=== PATIENT | female | born 1960 | race Caucasian/White ===

== ENCOUNTER 2019-03-25 06:40 | Day surgery (SDC) | payer OTHER, SELFPAY ==
[2019-03-25 06:43] VITALS: BP 112/66; PULSE 71; RESP 16; TEMP 36.4; O2SAT 97
[2019-03-25] MEDS: Lidocaine 2% Multi-Dose 50 ML VIAL (07:24)
--- NOTE | 2019-03-25 07:40 | W.PM.DSUDISC ---
Discharge Plan Disposition Patient Disposition: HOME Condition: Improving Discharge Details Reason For Visit: TRIGGER THUMB (R) Attending Provider: Baldev Gonzalez Primary Care Provider: Kendrick Mckenzie Home Meds and New Rx's Prescriptions: No Action ranitidine HCl [Zantac Maximum Strength] 150 MG tablet 150 mg PO BID PRNQty: 60 RF: 11 Nexium 24HR 22.3 MG capsule,delayed release(DR/EC) 22.3 mg PO PRN PRNRF: 0 tretinoin 20 GM cream 1 applic Topical HS RF: 0 Discharge Instructions Additional Instructions: Keep your right hand elevated above heart level as needed to help control pain and swelling.You may exercise and use your right hand as comfort allows. Expect a small amount of bloody drainage on the gauze bandages. For showering tomorrow, cover your bandage with a plastic bag and a rubber band about the wrist to keep the bandage dry and allow the incision to seal. On 03/27/19, you may remove all of your bandages and get your wound wet in the shower with soap and water. Gently pat the stitch dry and cover it with a bandaid. Continue to use the hand as comfort allows. Follow-up with Dr. Gonzalez in 1 week for stitch removal. Take your regular medications as before. Take tylenol,advil or aleve for milder pain Tylenol may be taken at the same time as aleve or at the same time as advil as they are metabolized differently and are not cross toxic. This can be done if your pain is not managed by a single medication. Activity:: Elevate Remove Dressings/Wound Care:: 48 hours Shower/Bathe:: 24 hours Diet:: As Tolerated Discharge Orders Discharge Orders: Discharge Order (Routine); Ordered 03/25/19 Ordered By: Baldev Gonzalez DS: Diagnosis Discharge Diagnosis (1) Trigger thumb of right hand: Status: Acute
--- NOTE | 2019-03-25 07:57 | W.PM.DSUDISC ---
Discharge Plan Disposition Patient Disposition: HOME Condition: Improving Discharge Details Reason For Visit: TRIGGER THUMB (R) Attending Provider: Baldev Gonzalez Primary Care Provider: Kendrick Mckenzie Home Meds and New Rx's Prescriptions: No Action ranitidine HCl [Zantac Maximum Strength] 150 MG tablet 150 mg PO BID PRNQty: 60 RF: 11 Nexium 24HR 22.3 MG capsule,delayed release(DR/EC) 22.3 mg PO PRN PRNRF: 0 tretinoin 20 GM cream 1 applic Topical HS RF: 0 Discharge Instructions Additional Instructions: Keep your right hand elevated above heart level as needed to help control pain and swelling.You may exercise and use your right hand as comfort allows. Expect a small amount of bloody drainage on the gauze bandages. For showering tomorrow, cover your bandage with a plastic bag and a rubber band about the wrist to keep the bandage dry and allow the incision to seal. On 03/27/19, you may remove all of your bandages and get your wound wet in the shower with soap and water. Gently pat the stitch dry and cover it with a bandaid. Continue to use the hand as comfort allows. Follow-up with Dr. Gonzalez in 1 week for stitch removal. Take your regular medications as before. Take tylenol,advil or aleve for milder pain Tylenol may be taken at the same time as aleve or at the same time as advil as they are metabolized differently and are not cross toxic. This can be done if your pain is not managed by a single medication. Activity:: Elevate Remove Dressings/Wound Care:: 48 hours Shower/Bathe:: 24 hours Diet:: As Tolerated Discharge Orders Discharge Orders: Discharge Order (Routine); Ordered 03/25/19 Ordered By: Baldev Gonzalez Discharge Data Discharge Date/Time-TO BE ENTERED AT DEPARTURE: 03/25/19 08:05 DS: Diagnosis Discharge Diagnosis (1) Trigger thumb of right hand: Status: Acute
--- NOTE | 2019-03-25 13:44 | ROE_ITS ---
DATE OF PROCEDURE: March 25, 2019 PREOPERATIVE DIAGNOSIS: Trigger thumb right upper extremity. POSTOPERATIVE DIAGNOSIS: Same. PROCEDURE: Release A1 raffy, right thumb. SURGEON: Baldev Gonzalez M.D. SUPERINTENDENT DRIVERS: Nurse ANESTHETIC: 2% Lidocaine plain. PREP: ChloraPrep. 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 I recommended she undergo trigger thumb release. I revi ewed the planned procedure with her in the Day Surgery holding area. She understood and wished to pr oceed. The right thumb was marked. PROCEDURE: She was taken to the operating suite where her right arm and hand were prepped with Chlor aPrep. Sterile drapes were applied. A time-out was instituted to confirm the patient's identity and her allergies and the planned procedure. 2% Lidocaine was then used to create an anesthetic wheal a t the metacarpophalangeal joint region. Prior to this, I confirmed that the thumb was actively ema ering. After waiting an appropriate time so that the thumb tip was completely numb, I then made a tr ansverse incision over the prominent A1 raffy. This was done under loupe magnification. The skin w as solely incised. The rest of the dissection was done via blunt technique using Littler scissors an d Ragnell retractors. The tendon sheath was identified and incised, initially with a #15 scalpel bl kevyn and then extended along the midline of the thumb with Littler scissors. I then had the patient f princess and extend her thumb and she had complete excursion of the thumb with no catching or triggering. She visualized this as well. The wound was then closed with a single suture of #5-0 Ethilon in a ho rizontal mattress fashion. There was minimal bleeding. Sterile bandages were applied consisting of Xeroform gauze, 4x4's and a 2-inch conforming gauze bandage. The patient was taken to the outpatient recovery room in satisfactory condition, tolerating the procedure well.
== END 2019-03-25 08:05 | disposition home or self-care (01) ==
PROVIDERS: PCP Family Medicine; Visit Provider Orthopaedic Surgery
PROC: (CPT 26055; principal; 2019-03-25 07:30)
DX: M65.311 Trigger thumb, right thumb (principal)
CPT/HCPCS: 26055

== ENCOUNTER 2019-09-09 07:05 | Outpatient (CLI) | payer OTHER, SELFPAY ==
[2019-09-09 08:05] LABS: HGB 14.2 g/dL (12.0-15.5); Mean Corpuscular Hemoglobin 31.4 pg (27.0-33.0); Mean Corpuscular Volume 95.1 fL (80-95); Mean Platelet Volume 9.2 fL (8.0-11.0); Platelet Count 266 x1000/uL (130-400); RBC 4.52 m/cumm (4.00-5.20); White Blood Cell Count 5.72 k/cumm (4.4-10.8)
[2019-09-09 08:23] LABS: ALT 28 U/L (14-59); AST 16 U/L (15-37); Alkaline Phosphatase 54 U/L (46-116); Anion Gap 6.4 mmol/L (3-11); BUN 24 mg/dL (7-18); Bilirubin, Total 1.1 mg/dL (0.2-1.0); CO2 30.6 mmol/L (21.0-32.0); CREATININE 0.87 mg/dL (0.55-1.02); Calcium 9.2 mg/dL (8.5-10.1); Calculated LDL 166 mg/dL; Chloride 105 mmol/L (98-107); Cholesterol 235 mg/dL (50-200); Glucose 109 mg/dL (70-100); HDL Cholesterol 51 mg/dL (40-60); Potassium 4.4 mmol/L (3.5-5.1); Sodium 142 mmol/L (136-145); TSH (W/Ref FT4) 2.55 uIU/mL (0.36-3.74); Total Protein 6.8 g/dL (6.4-8.2); Triglyceride 92 mg/dL (30-150)
== END 2019-09-09 07:25 ==
PROVIDERS: PCP Student in an Organized Health Care Education/Training Program; Visit Provider Student in an Organized Health Care Education/Training Program
DX: R53.83 Other fatigue (principal); Z86.2 Personal history of diseases of the blood and blood-forming organs and certain disorders involving the immune mechanism; I95.9 Hypotension, unspecified; R73.01 Impaired fasting glucose; Z13.220 Encounter for screening for lipoid disorders; K21.9 Gastro-esophageal reflux disease without esophagitis
CPT/HCPCS: 36415; 80053; 80061; 85027; 84443

== ENCOUNTER 2020-03-20 10:35 | Outpatient (CLI) | payer OTHER, SELFPAY ==
[2020-03-21 15:31] LABS: COVID-19 RT-PCR Result NEGATIVE (Negative)
== END 2020-03-20 10:55 ==
PROVIDERS: PCP Student in an Organized Health Care Education/Training Program; Visit Provider Podiatrist
DX: Z11.59 Encounter for screening for other viral diseases (principal)
CPT/HCPCS: U0003

== ENCOUNTER 2020-03-23 06:18 | Day surgery (SDC) | payer OTHER, SELFPAY ==
[2020-03-23 06:28] VITALS: BP 122/84; PULSE 70; RESP 16; TEMP 36.2; O2SAT 100
[2020-03-23] MEDS: Lactated Ringers 1,000 ML 80 ML IV (06:45)
[2020-03-23] MEDS: Povidone-Iodine Soln. 118 ML BTL TP ×2 (06:49→08:24)
--- NOTE | 2020-03-23 07:15 | HPE_ITS ---
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 Nonoperative treatment is a failed to provide sufficient relief of symptoms and she is opting for surgical intervention. 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 Peterson EGD - IV Sedation (05/28/06) DR PEÑA, ESOPHAGITIS Gastroscopy (07/02/15) Dr. Cindi Roberts History of carpal tunnel release (Acute) Bilateral History of section (Chronic) Family History Sister Lupus Father Stroke Social History Smoking/Tobacco Use Status: Never Alcohol Intake: current Alcohol Intake frequency: a few times a week Alcohol type: other Drug use: Never Substance use type: does not use Adopted: No Foster care: No Household members: spouse and children Housing: house Number of Children: 3 number of grandchildren: 1 Communication Needs: Corrective Lenses Education Level: college Do you need help understanding health information?: Never current occupation: [employer] Pets and animals: No Sexually active: Yes Do you think of yourself as: straight/heterosexual Current gender identity: female What type of physical activity do you participate in: bicycling, regular exercise, weight lifting and resistance training Duration: 60-90 minutes/day Frequency: 3-4 times per week Special kwame needs: No Seatbelt use: always Helmet use: Yes Drive intox or ride w/intox sanitation truck driver: No Working smoke detector in home: Yes Fire extinguisher in home: Yes Carbon monox detector in home: Yes Do you feel safe at home: Yes Do you feel safe in your relationship?: Yes Meds Home Medications and Allergies Home Medications Medication Instructions Recorded Confirmed Type tretinoin 1 applic TOPICAL HS script 01/04/18 03/23/20 History cholecalciferol (vitamin D3) 30 mcg PO DAILY 03/20/20 03/23/20 History [Vitamin D3] magnesium citrate 125 mg PO DAILY 03/20/20 03/23/20 History omega 0-zwa-yye-fish oil [Fish Oil] 1 cap PO DAILY 03/20/20 03/23/20 History turmeric root extract 1,076 mg PO DAILY 03/20/20 03/23/20 History Allergies Allergy/AdvReac Type Severity Reaction Status Date / Time codeine AdvReac Intermediate Nausea Verified 03/20/20 12:12 Exam Narrative Exam Narrative: Head is normocephalic Eyes PERRLA Uvula is midline airway looks assessable no suspicious oral lesions were noted Heart has regular rate and rhythm no gallops rubs or murmurs were noted Lung ni are clear Abdomen was soft, nontender bowel sounds x4 Peripheral pulses are manually palpable at the ankles 2 out of 4 capillary fill is under 3 seconds to all toes no peripheral edema Muscle groups of 5 out of 5 bilaterally Skeletal exam reveals end-stage degenerative arthrosis of the first MPJ the right foot with periarticular synovitis, crepitance severe restriction of motion. Pain is elicited with even gentle palpation or movement of the joint Neurologically toes were downgoing there are no focal deficits Impression: End-stage degenerative arthrosis first MPJ right foot Hallux rigidus Plan: Graciela is being brought to the OR for surgical correction painful right first MPJ. She understands risk and complications of surgery pertaining to pain scarring infection shortening of the great toe floating of the great toe the potential for revisional procedures. All questions have been answered in detail. No promises made to final outcome of surgery. Informed consents been obtained. Results Last Vital Signs Temp 36.2 C L 03/23/20 06:28 Pulse 70 03/23/20 06:28 Resp 16 03/23/20 06:28 BP 122/84 03/23/20 06:28 Pulse Ox 100 03/23/20 06:28 COVID-19 Screening In the past 14 days, have you traveled outside of [place] or [place]?: NO
[2020-03-23] MEDS: ceFAZolin 1 GM/50 ML BAG IVPB (07:33)
[2020-03-23] MEDS: Bupivacaine 0.5% Pres-Free 30 ML VIAL (08:04)
[2020-03-23] MEDS: Lidocaine 1% Pres-Free 5 ML VIAL (08:06)
[2020-03-23] MEDS: Dexamethasone 4 MG/ML VIAL (08:22)
--- NOTE | 2020-03-23 08:41 | PDOC.DSDIS_ITS ---
Discharge Plan Disposition Patient Disposition: HOME Condition: Good Discharge Details Reason For Visit: HALLUX RIGIDUS (R) Attending Provider: Baldev Shane Primary Care Provider: Marry Moise Home Meds and New Rx's Prescriptions: New hydrocodone-acetaminophen [[place]] 5-325 mg tablet 1 tab PO Q6H PRN (Reason: pain) Qty: 7 RF: 0 ibuprofen 600 mg tablet 600 mg PO Q6H PRN (Reason: pain and inflamation) Qty: 40 RF: 0 Continued tretinoin 20 GM cream 1 applic Topical HS RF: 0 cholecalciferol (vitamin D3) [Vitamin D3] 10 mcg (400 unit) Tablet 30 mcg PO DAILY RF: 0 omega 0-idk-tmf-fish oil [Fish Oil] 300-1,000 mg Capsule,Delayed Release(Dr/Ec) 1 cap PO DAILY RF: 0 magnesium citrate 125 mg Capsule 125 mg PO DAILY RF: 0 turmeric root extract 1,053 mg Tablet 1,076 mg PO DAILY RF: 0 Discharge Instructions Stand Alone Forms: [facility] Instructions-DSU, Lalita Juarez (DSU) Activity:: Elevate Remove Dressings/Wound Care:: Do Not Remove Shower/Bathe:: Cover Diet:: Normal Diet Discharge Data Discharge Date/Time-TO BE ENTERED AT DEPARTURE: 03/23/20 08:42 DS: Diagnosis Discharge Diagnosis (1) Hallux rigidus, right foot: Status: Acute
--- NOTE | 2020-03-23 08:53 | W.PM.OP ---
Date of service: 03/23/20 Time of Service: 08:53 Operative Note Operative Note DATE OF PROCEDURE: 03/23/20 PRE-OP DIAGNOSIS: Symptomatic right hallux rigidus deformity POST-OP DIAGNOSIS: same PROCEDURE: [place] type bunionectomy with 0.062 K wire fixation right first MPJ SURGEON: Baldev Shane ESTIMATED BLOOD LOSS: 1 TOURNIQUET TIME: 41 COMPLICATIONS: None Patient was transported to: same day Patient's condition: stable Implants: 0.062 K wire Indications: 60-year-old white female with chronic pain associated with end-stage degenerative arthrosis first MPJ right foot with hallux rigidus. Findings: Complete loss of articular surface was appreciated with periarticular exostoses flattening of the joint and joint mice observed within the joint space once opened. Procedure Description: Graciela was brought to the operative suite placed in the supine position with the right foot was prepped and draped in the usual sterile podiatric fashion. Timeout was performed by protocol. Anesthesia was obtained through local block of the first ray utilizing 10 cc of a 50: 50 mixture 1% lidocaine plain, 0.5% Marcaine plain. General anesthesia was utilized Kayleen Harkins CRNA nurse oracle application architect The right foot was exsanguinated well-padded ankle tourniquet inflated 250 mmHg. Attention was directed to the first MPJ the right foot where a 5 cm dorsal medial incision was made parallel to the EHL tendon. The incision was deepened in controlled depth fashion hemostasis acquired with electrocautery as needed. Dissection was carried down to the joint capsule where a midline incision was made. The joint capsule was reflected. Inspection of the articular surface of the joint revealed complete loss of cartilage on both sides of the joint. With power instrumentation approximately 1 cm of the base of the proximal phalanx was resected. This was removed from the operative field. The medial lateral and dorsal hyperostosis from the first metatarsal head was then resected. All rough and bony edges were rasped smooth. Copious irrigation was performed. Stabilization was performed with a 0.062 K wire in retrograde fashion. The joint capsule was subsequently repaired with simple interrupted suture 3-0 Vicryl subcutaneous layer was repaired with simple interrupted suture of 4-0 Vicryl running subcuticular stitch of 4-0 Monocryl was then utilized to coapt the skin. This was supported with Mastisol half-inch Steri-Strips. 4 mg of dexamethasone phosphate was infused deeply into the joint region. Betadine ointment applied to the K wire. Xeroform gauze fluff compression dressings applied to the right foot. Tourniquet was released at approximately 41 minutes with vascularity returning immediately to all toes. Graciela left the OR with vital signs stable vascular status intact sharp and sponge counts were correct she will be followed by myself in the office next week.
--- NOTE | 2020-03-23 09:01 | PDOC.DSDIS_ITS ---
Discharge Plan Disposition Patient Disposition: HOME Condition: Good Discharge Details Reason For Visit: HALLUX RIGIDUS (R) Attending Provider: Baldev Shane Primary Care Provider: Marry Moise Home Meds and New Rx's Prescriptions: New hydrocodone-acetaminophen [[place]] 5-325 mg tablet 1 tab PO Q6H PRN (Reason: pain) Qty: 7 RF: 0 ibuprofen 600 mg tablet 600 mg PO Q6H PRN (Reason: pain and inflamation) Qty: 40 RF: 0 Continued tretinoin 20 GM cream 1 applic Topical HS RF: 0 cholecalciferol (vitamin D3) [Vitamin D3] 10 mcg (400 unit) Tablet 30 mcg PO DAILY RF: 0 omega 2-ogv-kkx-fish oil [Fish Oil] 300-1,000 mg Capsule,Delayed Release(Dr/Ec) 1 cap PO DAILY RF: 0 magnesium citrate 125 mg Capsule 125 mg PO DAILY RF: 0 turmeric root extract 1,053 mg Tablet 1,076 mg PO DAILY RF: 0 Discharge Instructions Stand Alone Forms: [place] Instructions-DSU, Lalita Juarez (DSU) Activity:: Elevate Remove Dressings/Wound Care:: Do Not Remove Shower/Bathe:: Cover Diet:: Normal Diet Discharge Orders Discharge Orders: Discharge Order (Routine); Ordered 03/23/20 Ordered By: Baldev Shane DS: Diagnosis Discharge Diagnosis (1) Hallux rigidus, right foot: Status: Acute
[2020-03-23 09:08] VITALS: BP 103/62; PULSE 64; RESP 16; TEMP 36.2; O2SAT 100
== END 2020-03-23 09:36 | disposition home or self-care (01) ==
LOC: SUR 06:18
PROVIDERS: PCP Student in an Organized Health Care Education/Training Program; Visit Provider Podiatrist
PROC: (CPT 28292; principal; 2020-03-23 07:30)
DX: M19.071 Primary osteoarthritis, right ankle and foot (principal); M20.21 Hallux rigidus, right foot; M85.871 Other specified disorders of bone density and structure, right ankle and foot
CPT/HCPCS: 28292; 99223; J0690; J1100; J1885; J2001; J2405

== ENCOUNTER 2020-07-30 01:53 | Outpatient (CLI) | payer OTHER, SELFPAY ==
--- NOTE | 2020-07-30 08:03 | DI.MAMMO_ITS ---
EXAM: MAMMO SCREENING CLINICAL HISTORY: screening,Z12.39 TECHNIQUE: Mammograms were interpreted according to the usual protocol including computer analysis w [employer] CAD system, tomosynthesis and C-view imaging. COMPARISON: 2010 through 2017 FINDINGS: The breasts are composed of scattered fibroglandular densities, Breast Density category B. No suspicious masses or suspicious microcalcifications are seen. No skin thickening or abnormal axillary lymph nodes are seen. There has been no significant change from prior exams. IMPRESSION: BI-RADS Category 1, Negative mammogram Yearly screening mammography is recommended. Breast Density - Category B, scattered fibroglandular densities. A negative radiographic report should not delay biopsy if a dominant or clinically suspicious mass is present. Up to ten percent of cancers are not identified on mammography. A negative report may reinforce clinical impression. Adenosis and dense breasts may obscure an underlying neoplasm. False positive reports average 6 to 10%. Patient will receive a letter notifying them of these results.
== END 2020-07-30 02:13 ==
PROVIDERS: PCP Student in an Organized Health Care Education/Training Program; Visit Provider Student in an Organized Health Care Education/Training Program
DX: Z12.31 Encounter for screening mammogram for malignant neoplasm of breast (principal)
CPT/HCPCS: 77063; 77067

== ENCOUNTER 2020-09-26 00:34 | Outpatient (CLI) | payer OTHER, SELFPAY ==
--- NOTE | 2020-09-26 07:45 | DI.US_ITS ---
EXAM: US SOFT TISSUE EXTREMITY CLINICAL HISTORY: Evaluate nodule; Tender to palpATION,R22.9 TECHNIQUE: Ultrasound performed using standard protocol. COMPARISON: US ABDOMEN ULTRASOUND (P) {[id number]} from 09/04/2015 FINDINGS: Soft tissue ultrasound was performed to evaluate palpable area of abnormality of the anterior superio r left thigh. Ultrasound shows a 9 x 8 x 5 millimeter in diameter superficial well-circumscribed hor izontally oriented avascular echogenic solid nodule, this has appearance consistent with lipoma altho ugh other etiologies are not excluded. IMPRESSION: Palpable left anterior thigh nodule appears to correspond with ultrasonically identified presumed lip elicia, 9 millimeter in diameter. DATA REPOSITORY:
== END 2020-09-26 00:54 ==
PROVIDERS: PCP Student in an Organized Health Care Education/Training Program; Visit Provider Student in an Organized Health Care Education/Training Program
DX: R22.42 Localized swelling, mass and lump, left lower limb (principal)
CPT/HCPCS: 76881

== ENCOUNTER 2021-10-04 02:36 | Outpatient (CLI) | payer OTHER, SELFPAY ==
[2021-10-04 07:40] LABS: HCT 41.4 % (36.0-46.0); HGB 13.8 g/dL (11.2-15.7); MCH 31.9 pg (27.0-33.0); MCHC 33.3 % (32.0-36.0); MCV 95.6 fL (80-95); MPV 8.8 fL (8.0-11.0); Platelet Count 236 10^3/uL (130-400); RBC 4.33 10^6/uL (3.93-5.22); RDW 11.7 % (11.7-14.6); RDW-SD 41.1 fL; WBC 4.66 10^3/uL (4.4-10.8)
[2021-10-04 09:22] LABS: ALT 24 U/L (14-59); AST 15 U/L (15-37); Albumin 3.9 g/dL (3.4-5.0); Alkaline Phosphatase 57 U/L (46-116); Anion Gap 5.8 mmol/L (3-11); BUN 18 mg/dL (7-18); Bilirubin, Total 1.1 mg/dL (0.2-1.0); CO2 31.2 mmol/L (21.0-32.0); CREATININE 0.9 mg/dL (0.55-1.02); Calculated LDL 168 mg/dL (<100); Chloride 104 mmol/L (98-107); Cholesterol 240 mg/dL (<200); Glucose 100 mg/dL (74-106); HDL Cholesterol 59 mg/dL (40-60); Sodium 141 mmol/L (136-145); TSH (W/Ref FT4) 2.35 uIU/mL (0.36-3.74); Total Protein 6.6 g/dL (6.4-8.2); Triglyceride 65 mg/dL (<150)
[2021-10-07 00:32] LABS: Vitamin D 25 Total 44.8 ng/mL (30-100)
== END 2021-10-04 02:37 | disposition home or self-care (01) ==
LOC: LBO 02:36
PROVIDERS: PCP Student in an Organized Health Care Education/Training Program; Visit Provider Student in an Organized Health Care Education/Training Program
DX: R73.01 Impaired fasting glucose; K90.9 Intestinal malabsorption, unspecified; R79.89 Other specified abnormal findings of blood chemistry; K21.9 Gastro-esophageal reflux disease without esophagitis; E46 Unspecified protein-calorie malnutrition; Z13.220 Encounter for screening for lipoid disorders
CPT/HCPCS: 36415; 80053; 80061; 82306; 85027; 84443

== ENCOUNTER 2021-10-14 01:41 | Outpatient (CLI) | payer OTHER, SELFPAY ==
--- NOTE | 2021-10-14 07:00 | DI.RAD_ITS ---
Exam(s) XR HAND LT COMPLETE EXAM: XR HAND LT COMPLETE CLINICAL HISTORY: eval for bony path,arthritis vs tendonitis vs injury,bilat hand pain,. TECHNIQUE: 2D digital imaging was performed. COMPARISON: CR XR HAND RT COMPLETE from 10/14/2021 FINDINGS: No evidence of acute fracture nor dislocation. There is a 2 millimeter calcific density seen associa guy with the PIP joint of the 3rd finger, best seen on the oblique view. At the level of the wrist there are significant advanced degenerative changes at the articulation bet ween the thumb metacarpal and trapezium. Hypertrophic change and adjacent calcific density measuring 5 x 4 millimeters. Similar to the opposite side. At the metacarpophalangeal joint of the thumb there is some linear calcification noted off the latera l aspect of the joint, possibly within the lateral collateral ligament. Similar findings not seen in the opposite-right thumb. IMPRESSION: Advanced degenerative changes at the 1st carpometacarpal joint. Other thumb findings as described above. DATA REPOSITORY: RADIATION DOSE DELIVERED:
--- NOTE | 2021-10-14 07:00 | DI.RAD_ITS ---
Exam(s) XR HAND RT COMPLETE EXAM: XR HAND RT COMPLETE CLINICAL HISTORY: eval for bony path,arthritis vs tendonitis vs injury,bilat hand pain,. TECHNIQUE: 2D digital imaging was performed. COMPARISON: No exams were available for comparison FINDINGS: Three views reveal no evidence of acute fracture nor dislocation. Small ossified densities are seen adjacent to the DIP joint of the 3rd finger and interphalangeal joint of the thumb. Also adjacent to the DIP joint of the 4th and 3rd fingers. There are minimal degenerative changes at these joints. No erosions. At the level of the wrist there is significant osteoarthritic degenerative change at the articulation between the thumb metacarpal and trapezium. Similar to the opposite side. IMPRESSION: Para-articular calcifications at the level of the DIP joints of the 2nd, 3rd, and 4th fingers as well as interphalangeal joint of the thumb. Moderate-advanced degenerative changes at the 1st carpometacarpal joint, similar to the opposite side . DATA REPOSITORY: RADIATION DOSE DELIVERED:
== END 2021-10-14 02:01 ==
PROVIDERS: PCP Student in an Organized Health Care Education/Training Program; Visit Provider Student in an Organized Health Care Education/Training Program
DX: M18.0 Bilateral primary osteoarthritis of first carpometacarpal joints; M79.641 Pain in right hand; M79.642 Pain in left hand; M79.644 Pain in right finger(s); M79.645 Pain in left finger(s); M65.311 Trigger thumb, right thumb
CPT/HCPCS: 73130

== ENCOUNTER 2021-11-04 12:00 | Outpatient (REF) | payer OTHER, SELFPAY ==
--- NOTE | 2021-11-04 11:00 | PAPFT_PTH ---
PATIENT: Graciela Vidal LOC: [facility] U#:[id number] AGE/SX: 61/F ROOM: RE11/04/[address]: LINDA Reagan : 1960 BED: DIS: 11/04/2021 SPEC #: [id number] RECD: 11/04/21 12:52 STATUS: RICHAR REJaison #: [id number] ROSALBA: 11/04/21 11:[address]: Anita Grande DEPT: [facility] Cytology RECD BY: Antonia Avilez ENTERED: 11/04/21 12:52 SP TYPE: PAPFT OTHR DR: Marry Moise, Tissues: 1 - CX/ENDOCX FOR PAP SMEARS Procedures: PAP THIN PREP/[facility] Screening HPV DNA PROBE Comments: [id number]
== END 2021-11-04 12:01 | disposition home or self-care (01) ==
LOC: LBN 12:00
PROVIDERS: PCP Student in an Organized Health Care Education/Training Program; Visit Provider Nurse Practitioner Family
DX: Z12.4 Encounter for screening for malignant neoplasm of cervix (principal); Z11.51 Encounter for screening for human papillomavirus (HPV)
CPT/HCPCS: 88142; 87624

== ENCOUNTER 2021-11-15 01:58 | Outpatient (CLI) | payer OTHER, SELFPAY ==
--- NOTE | 2021-11-15 06:30 | DI.DEXA_ITS ---
Exam(s) XR DEXA BONE DENSITY W/WO SADE EXAM: XR DEXA BONE DENSITY W/WO SADE CLINICAL HISTORY: evaluate bone density,screening for osteoporosis,at risk for osteoporosis TECHNIQUE: Routine DEXA evaluation of the lumbar spine, hip, or forearm. COMPARISON: No exams were available for comparison FINDINGS: Performed on a Hologic unit. Lateral image: No compression fracture evident. Lumbar Spine total T-score: -2.0 Hip total T-score:-2.0 Independent reading at the level of the femoral neck yields at T-score of -2.8. Forearm total T-score: -2.6 IMPRESSION: Bone mineral density measures in the osteopenia range, bordering on osteoporosis.. Fracture risk is moderate-high. Note: Any spine fracture indicates 5x risk for subsequent spine fracture and 2x risk for subsequent h ip fracture. World Health Organization criteria for BMD interpretation classify patients: Normal...... T- Score at or above -1.0 Osteopenic... T- Score between -1.0 and -2.5 Osteoporosis... T-Score at or below -2.5
== END 2021-11-15 02:18 ==
PROVIDERS: PCP Student in an Organized Health Care Education/Training Program; Visit Provider Student in an Organized Health Care Education/Training Program
DX: M81.0 Age-related osteoporosis without current pathological fracture (principal); Z13.820 Encounter for screening for osteoporosis; Z79.899 Other long term (current) drug therapy; Z91.89 Other specified personal risk factors, not elsewhere classified; M85.89 Other specified disorders of bone density and structure, multiple sites
CPT/HCPCS: 77080

== ENCOUNTER 2022-01-31 01:12 | Outpatient (RCR) | payer OTHER, SELFPAY ==
[2022-01-31] MEDS: Normal Saline Flush 10 ML SYR IVP (13:06)
[2022-01-31] MEDS: ZOLEDRONIC ACID/MANNITOL/WATER 5 MG/100 ML BTL 300 MG IVPB (13:06)
== END 2022-03-01 23:59 | disposition home or self-care (01) ==
LOC: INF 01:12
PROVIDERS: PCP Student in an Organized Health Care Education/Training Program; Visit Provider Student in an Organized Health Care Education/Training Program
DX: M81.0 Age-related osteoporosis without current pathological fracture (principal)
CPT/HCPCS: 96365; J3489

== ENCOUNTER 2022-03-14 00:51 | Outpatient (CLI) | payer OTHER, SELFPAY ==
--- NOTE | 2022-03-14 06:45 | DI.MAMMO_ITS ---
Exam(s) MAMMO SCREENING EXAM: MAMMO SCREENING CLINICAL HISTORY: screening,Z12.39. TECHNIQUE: Bilateral full field digital CC and MLO mammographic images were obtained with 3D tomosyn thesis and utilizing computer aided detection (CAD). COMPARISON: Prior mammograms were reviewed, the most recent being July 2020. FINDINGS: There has been no significant change in the appearance and distribution tissue. There are no new spiculated masses nor malignant appearing microcalcification groups. There is no significant architectural distortion nor skin thickening-retraction. IMPRESSION: No radiographic evidence of malignancy. BI-RADS Category 1 - Negative Breast Density - Category B - Scattered areas of fibroglandular density Breast density Category C or D implies that the patient has dense breast tissue. Dense breast tissue can make it harder to find cancer on a mammogram. Dense breast tissue is also associated with an incr eased risk of breast cancer. This information about the result of the mammogram report was provided to the patient to raise their awareness. Use this report when you speak with the patient about their risks for breast cancer, which includes their family history. At that time, you may recommend additional screening tests (Ultrasoun d or MRI) as these tests may add significant information. A negative radiographic report should not delay biopsy if a dominant or clinically suspicious mass is present. Up to ten percent of cancers are not identified on mammography. A negative report may reinforce clinical impression. Adenosis and dense breasts may obscure an underlying neoplasm. False positive reports average 6 to 10%. Patient will receive a letter notifying them of these results.
== END 2022-03-14 01:11 ==
PROVIDERS: PCP Student in an Organized Health Care Education/Training Program; Visit Provider Student in an Organized Health Care Education/Training Program
DX: Z12.31 Encounter for screening mammogram for malignant neoplasm of breast (principal)
CPT/HCPCS: 77063; 77067

== ENCOUNTER 2022-07-14 11:12 | Day surgery (SDC) | payer OTHER, SELFPAY ==
--- NOTE | 2022-07-14 08:22 | COLE_ITS ---
Colonoscopy Report Date of procedure: 07/14/22 Pre-op diagnosis general: colon cancer screening Post-op diagnosis procedure note: same Procedure: Colonoscopy Surgeon: Cindi Roberts Anesthesia Type: General:No Airway Estimated blood loss (mL): 0 Pathology: none sent Complications: None Disposition: same day Indications: The patient? is a pleasant 62-year-old female who is here to discuss another screening colonoscopy. ? She denies any changes in bowel habits, melena, h ematochezia, unintentional weight loss or family history of colon cancer.? The procedure and risks were discussed.? The prep was reviewed in detail.? Risks, benefits and complications have been reviewed. Complications include but are not limited to bleeding, pain, perforation, missed small lesion/polyp, sore throat, aspiration and adverse reaction to the medications. Questions were entertained and answered to their satisfaction and they wished to proceed. No guarantees were given or implied. Prep: Miralax/Dulcolax Procedure Start Time: 13:05 Findings: Normal colonoscopy Procedure Description: After informed consent was obtained the patient was taken to the procedure room and placed in a left decubitous position. Monitors were applied and a time out was done. The patients name, date of , procedure, allergies to medications and metal in their body was reviewed. The patient was then sedated. Once sedated and comfortable a rectal exam was done. External exam was normal. Internal exam revealed a normal sphincter tone and no palpable masses. The scope was then introduced and retro-flexed. No internal hemorrhoids, polyps or masses were identified on retro-flexion. The scope was then advanced to the cecum without difficulty. The ileocecal vlave and appendiceal orifice were identified. The prep was adequate. The scope was then slowly retracted over more then 6 minutes back into the rectum. There were no polyps. There was no diverticulosis noted. The scope was removed and the patient was woken up and taken back to Same day surgery in stable condition. The patient tolerated the procedure well and there were no immediate complications.
--- NOTE | 2022-07-14 08:23 | W.PM.DSUDISC ---
Discharge Plan Disposition Patient Disposition: HOME Condition: Good Discharge Details Reason For Visit: colonoscopy Attending Provider: Cindi Roberts Primary Care Provider: Marry Moise Home Meds and New Rx's Prescriptions: Continued garlic 5,000 mcg tablet 5 mg PO DAILY zoledronic aade-gpaucmrl-[id number] [Reclast] 5 mg/100 mL piggyback See Rx Instructions IV ONCE Qty: 100 0RF Label Comments: pt. reports leg aches and swelling, porb wont do again Rx Instructions: 5MG IN 100ML IV Infusion IV once; administer over at least 15 mins calcium carbonate [Antacid (calcium carbonate)] 200 mg calcium (500 mg) tablet,chewable 200 mg PO BID Label Comments: pt. reports calcium citrate vitamin K2 40 mcg tablet 40 mcg PO DAILY tretinoin 20 GM cream 1 applic Topical HS Rx Instructions: to affected facial areas after washing for mild photodamage to skin, Dr Harmon calcium citrate 200 mg (950 mg) Tablet 200 mg PO BID omega 3-vce-krp-fish oil [Fish Oil] 300-1,000 mg Capsule,Delayed Release(Dr/Ec) 1 cap PO DAILY turmeric root extract 1,053 mg Tablet 1,076 mg PO DAILY cholecalciferol (vitamin D3) [Vitamin D3] 10 mcg (400 unit) tablet 2,000 unit PO DAILY magnesium citrate 125 mg capsule 100 mg PO DAILY Discontinued bisacodyl [Dulcolax (bisacodyl)] 5 mg tablet,delayed release (DR/EC) 5 mg PO ONCE Qty: 4 0RF polyethylene glycol 3350 17 gram/dose powder 17 g PO ONCE Qty: 238 0RF Discharge Instructions Additional Instructions: Findings: Normal Follow up: 10 years Please call if you develop: fevers >101.5 Nausea or Vomiting Abdominal pain that is not transient Rectal bleeding that is more then a tbsp A hard abdomen and inability to pass gas DAY SURGERY UNIT POST ENDOSCOPY INSTRUCTIONS Instructions for everyone who is given Anesthesia: For your safety, please do the following for the next 24 Hours: a. Do not drive or operate dangerous equipment b. Do not drink alcohol beverages or use any recreational drugs for the first 24 hours or while taking pain medications. The medications in your body may have a reaction that can be dangerous. c. Do not make any important decisions or sign any important papers 1. Generally there are no restrictions on your activity after a day or so has gone by, but you may feel a bit fatigued for a few days. 2. After you arrive home you may have a light meal and return to a normal diet as you can tolerate it without feeling sick to your stomach. 3. After surgery, you may feel pain or discomfort. This should be only transient, but if it persists please contact your doctor. 4. If there are any questions regarding the findings of your procedure, please feel free to contact your doctor. 6. If you are unable to contact your doctor with a problem, contact the hospital at [phone]. 7. Continue all your regular medications unless directed otherwise. I understand the above instructions and have no questions. Signature of Patient or Responsible Adult Escort Date/Time Name of Responsible Adult Escort Signature of Nurse Date/Time Activity:: Activity as Tolerated Diet:: As Tolerated Discharge Orders Discharge Orders: Discharge Order (Routine); Ordered 07/14/22 Ordered By: Cindi Roberst
[2022-07-14 11:39] VITALS: BP 116/87; PULSE 72; RESP 18; TEMP 36.3; O2SAT 98
[2022-07-14] MEDS: Lactated Ringers 1,000 ML 80 ML IV (11:50)
--- NOTE | 2022-07-14 13:34 | W.ANESPRE ---
General Info Date of Service Date Performed: 07/14/22 Height: 5 ft 4 in Weight: 59.5 kg Body Mass Index (BMI): 22.5 Surgical Procedure: Operation Date: 07/14/22 13:05 Proposed Procedure Side Surgeon p Colonoscopy Cindi Roberts MD Actual Procedure Side Surgeon p Colonoscopy Cindi Roberts MD Meds Allergies and Home Medications Allergies Allergy/AdvReac Type Severity Reaction Status Date / Time codeine AdvReac Intermediate Nausea Verified 07/14/22 11:30 Home Medication Medication Instructions Recorded tretinoin 0.025 % topical cream 1 applic topical HS 01/04/18 omega 8-lov-npr-fish oil 300 1 cap PO DAILY 03/20/20 mg-1,000 mg capsule,delayed release (Fish Oil) turmeric root extract 1,053 mg 1,076 mg PO DAILY 03/20/20 tablet cholecalciferol (vitamin D3) 10 2,000 unit PO DAILY 09/14/20 mcg (400 unit) tablet (Vitamin D3) garlic 5,000 mcg tablet 5 mg PO DAILY 09/14/20 magnesium citrate 125 mg capsule 100 mg PO DAILY 09/14/20 zoledronic acid 5 mg/100 mL in See Rx Instructions IV ONCE #100 mL 12/20/21 mannitol 5 %-water intravenous piggybck (Reclast) bisacodyl 5 mg tablet,delayed 5 mg PO ONCE #4 tabs 07/04/22 release (Dulcolax (bisacodyl)) calcium carbonate 200 mg calcium 200 mg PO BID 07/04/22 (500 mg) chewable tablet (Antacid (calcium carbonate)) polyethylene glycol 3350 17 17 g PO ONCE #238 grams 07/04/22 gram/dose oral powder vitamin K2 40 mcg tablet 40 mcg PO DAILY 07/04/22 calcium citrate 200 mg (950 mg) 200 mg PO BID 07/14/22 tablet Current Visit Medications: Current Medications Generic Name Dose Route Start Last Admin Trade Name Freq PRN Reason Stop Dose Admin Hyoscyamine Sulfate 0.125 mg 07/14/22 08:24 Hyoscyamine 0.125 Mg Sl/Oral/Chew SL DIRECTED PRN Ringer's Solution 1,000 mls @ 80 mls/hr 07/14/22 06:00 07/14/22 11:50 IV 08/10/22 23:59 80 mls/hr INFUSION ZACHARIAH Administration IV Miscellaneous Supplies 1 each 07/14/22 06:00 Iv Access IV 08/10/22 23:59 DIRECTED ZACHARIAH Ondansetron HCl 4 mg 07/14/22 08:24 Ondansetron 4 Mg/2 Ml Vial IVP Q4H PRN PRN Nausea / Vomiting Sodium Chloride 0 ml 07/14/22 06:00 Normal Saline Flush 10 Ml Syr IV 08/10/22 23:59 PRN PRN Sodium Chloride 0 ml 07/14/22 06:00 Normal Saline 10 Ml Vial IJ 08/10/22 23:59 DIRECTED PRN Sterile Water 0 ml 07/14/22 06:00 Water,Injection,Sterile 10 Ml Vial IJ 08/10/22 23:59 DIRECTED PRN PFSH Active Problems Active Problems: Problem Status Onset Code Abnormal fasting glucose 03/18/16 R73.01 Asymptomatic postmenopausal status (age-related) (natural) 11/26/12 Z78.0 Gastroesophageal reflux disease without esophagitis 12/29/05 K21.9 Non-ulcer dyspepsia 11/06/15 K30 Other hyperlipidemia 05/12/17 E78.4 Trigger thumb of right hand M65.311 Hallux rigidus, right foot M20.21 Subcutaneous nodule R22.9 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 Both patient and son are vaccinated Surgical History Surgical History Colonoscopy - IV Sedation 2010- Dr. Peterson EGD - IV Sedation (05/28/06) DR SANCHEZ, ESOPHAGITIS Gastroscopy (07/02/15) Dr. Cindi Roberts History of carpal tunnel release Bilateral History of section Tobacco Smoking/Tobacco Use Status: Never Passive smoking exposure: No Alcohol Alcohol Intake: current Alcohol intake frequency: a few times a week Alcohol type: beer and other Substance Use Substance use: Occasionally Substance use type: marijuana Details: marijuana: 3 weeks ago Vital Signs and Lab Results Vital Signs Most Recent Vital Signs in EMR: Most Recent Vital Signs Temp Pulse Resp BP Pulse Ox 36.3 C L 72 18 116/87 98 07/14/22 11:39 07/14/22 11:39 07/14/22 11:39 07/14/22 11:39 07/14/22 11:39 Lab Results Blood Type / Crossmatch: No Data to Display Complete Blood Count: No Data to Display Complete Metabolic Panel: No Data to Display Liver Function Panel: No Data to Display Coagulation Panel: No Data to Display Cardiac Panel: No Data to Display Arterial Blood Gas: No Data to Display Venous Blood Gas: No Data to Display Pancreas Panel: No Data to Display Thyroid Panel: No Data to Display Infectious Disease: No Data to Display Blood Cultures: No Data to Display Toxicology Panel: No Data to Display Anesthesia Assessment and Plan Anesthesia History Personal History: No History of Anesthesia Complications Family History: No Family History of Anesthesia Complications Exercise Tolerance Exercise Tolerance: Metabolic Equivalents>4 Pertinent Negatives Pertinent Negatives: No Symptoms of GERD, No Major Cardiovascular Symptoms or Complaints, No Major Pulmonary Symptoms or Complaints and No History of CVA/TIA Cardiac & Pulmonary Exam Cardiac Exam: Normal S1/S2 Heart Sounds Pulmonary Exam: Clear Bilateral Breath Sounds Implantable Cardiac Device Does patient have a Pacemaker or an ICD?: No Airway Exam Known Difficult Airway: No Mallampati Class: 1 Mouth Opening: Normal (> 3cm) Thyromental Distance: Greater than 3 cm Neck Range of Motion: Full ROM Neck Circumference: Normal Teeth Condition: Normal Dentition ASA Classification ASA Score: ASA 2 Emergency Case?: No NPO Status NPO Status: NPO Clears >2 hours, Solids >8 hours Anesthesia Plan Resuscitation Status: Full Code Anesthesia Technique: General Anesthesia Airway Planned: Natural Airway Monitors Used: Standard Monitors
[2022-07-14 13:35] VITALS: BMI 22.5
[2022-07-14 14:12] VITALS: BP 94/64; PULSE 66; RESP 18; TEMP 36.3; O2SAT 96
--- NOTE | 2022-07-14 14:19 | W.ANESPOSTOP ---
Postoperative Evaluation Date, Time and Location Date Performed: 07/14/22 Time Performed: 14:15 Patient Location: Day Surgery Unit Vital Signs Most Recent Imported Vital Signs: Most Recent Vital Signs Temp Pulse Resp BP Pulse Ox 36.3 C L 72 18 116/87 98 07/14/22 11:39 07/14/22 11:39 07/14/22 11:39 07/14/22 11:39 07/14/22 11:39 Most Recent Manually Entered Vital Signs: Adult Blood Pressure: 94/64 Heart Rate: 73 Respirations: 12 Oxygen Saturation (%): 96 Temperature (C): 36.3 C Pain Score (0-10 Scale): 0 Pain Score Most Recent Pain Score: Most Recent Pain Score Pain Level 0 07/14/22 11:39 Assessment Mental Status: Awake (Alert & Oriented to Patient Baseline) Airway and Respiratory Function: Patent airway with normal (patient baseline) respiratory exam Cardiovascular Function: Hemodynamically Stable Hydration Status: Adequately Hydrated Nausea & Vomiting: No Nausea or Vomiting Pain: Pt. Denies Any Pain Peripheral Nerve Block: Patient did not receive a nerve block
[2022-07-14 14:20] VITALS: BP 94/64; PULSE 73; RESP 12; TEMPC 36.3; O2SAT 96
[2022-07-14 14:45] VITALS: BP 109/79; PULSE 66; RESP 18; TEMP 36.5; O2SAT 100
== END 2022-07-14 15:10 | disposition home or self-care (01) ==
PROVIDERS: PCP Student in an Organized Health Care Education/Training Program; Visit Provider Surgery
PROC: 0DJD8ZZ Inspection of Lower Intestinal Tract, Via Natural or Artificial Opening Endoscopic (ICD-10-PCS; CPT 45378; principal; 2022-07-14 13:00)
DX: Z12.11 Encounter for screening for malignant neoplasm of colon (principal)
CPT/HCPCS: 45378

== ENCOUNTER 2023-02-20 01:16 | Outpatient (RCR) | payer BC, SELFPAY ==
[2023-02-20] MEDS: Normal Saline Flush 10 ML SYR IVP (09:01)
[2023-02-20] MEDS: ZOLEDRONIC ACID/MANNITOL/WATER 5 MG/100 ML BTL 300 MG IVPB (09:01)
== END 2023-03-01 23:59 | disposition home or self-care (01) ==
LOC: INF 01:16
PROVIDERS: PCP Student in an Organized Health Care Education/Training Program; Visit Provider Student in an Organized Health Care Education/Training Program
DX: M81.0 Age-related osteoporosis without current pathological fracture (principal)
CPT/HCPCS: 96365; J3489

== ENCOUNTER 2024-02-12 01:31 | Outpatient (CLI) | payer MEDICARE, SELFPAY ==
[2024-02-12 09:48] LABS: ALT 28 U/L (14-59); AST 13 U/L (15-37); Albumin 3.8 g/dL (3.4-5.0); Alkaline Phosphatase 46 U/L (46-116); BUN 25 mg/dL (7-18); Bilirubin, Total 1.4 mg/dL (0.2-1.0); Calcium 9.2 mg/dL (8.5-10.1); Calculated LDL 178 mg/dL (<100); Chloride 105 mmol/L (98-107); Cholesterol 257 mg/dL (<200); Estimated GFR 62.52 (mL/min/1.73m2); Glucose 112 mg/dL (74-106); HDL Cholesterol 62 mg/dL (40-60); Potassium 4.4 mmol/L (3.5-5.1); Sodium 141 mmol/L (136-145); Total Protein 7.1 g/dL (6.4-8.2); Triglyceride 88 mg/dL (<150)
== END 2024-02-12 01:32 | disposition home or self-care (01) ==
LOC: LBO 01:31
PROVIDERS: Absent Provider Student in an Organized Health Care Education/Training Program; PCP Student in an Organized Health Care Education/Training Program; Visit Provider Student in an Organized Health Care Education/Training Program
DX: R73.01 Impaired fasting glucose (principal); R79.89 Other specified abnormal findings of blood chemistry
CPT/HCPCS: 36415; 80053; 80061

== ENCOUNTER 2024-03-18 01:38 | Outpatient (RCR) | payer MEDICARE, SELFPAY ==
[2024-03-18] MEDS: Normal Saline Flush 10 ML SYR IVP (08:01)
[2024-03-18] MEDS: ZOLEDRONIC ACID/MANNITOL/WATER 5 MG/100 ML BTL 300 MG IVPB (08:14)
== END 2024-04-01 23:59 | disposition home or self-care (01) ==
LOC: INF 01:38
PROVIDERS: PCP Student in an Organized Health Care Education/Training Program; Visit Provider Student in an Organized Health Care Education/Training Program
DX: M81.0 Age-related osteoporosis without current pathological fracture (principal)
CPT/HCPCS: 96365; J3489

== ENCOUNTER 2024-07-18 03:25 | Outpatient (CLI) | payer MEDICARE, SELFPAY ==
--- NOTE | 2024-07-18 07:00 | DI.DEXA_ITS ---
Exam(s) XR DEXA BONE DENSITY W/WO SADE EXAM: XR DEXA BONE DENSITY W/WO SADE CLINICAL HISTORY: re-evaluation of bone density,screening for osteoporosis in postmenopausal TECHNIQUE: Routine DEXA evaluation of the lumbar spine, hip, or forearm. COMPARISON: CR XR DEXA BONE DENSITY W/WO SADE from 11/15/2021 FINDINGS: Performed on a [facility] unit. Lateral image: No compression fracture evident. Lumbar Spine total T-score: -1.2. Prior reading in November 2021 was -2.0 Hip total T-score:-1.6. Prior reading November 2021 was -2.0 Independent reading at the level of the femoral neck yields T-score of -2.0 Forearm total T-score: -1.9 IMPRESSION: Bone mineral density measures in the osteopenia range. Fracture risk is moderate. Note: Any spine fracture indicates 5x risk for subsequent spine fracture and 2x risk for subsequent h ip fracture. World Health Organization criteria for BMD interpretation classify patients: Normal...... T- Score at or above -1.0 Osteopenic... T- Score between -1.0 and -2.5 Osteoporosis... T-Score at or below -2.5
== END 2024-07-18 03:45 ==
LOC: DI 03:25
PROVIDERS: PCP Student in an Organized Health Care Education/Training Program; Visit Provider Student in an Organized Health Care Education/Training Program
DX: Z78.0 Asymptomatic menopausal state (principal); M85.89 Other specified disorders of bone density and structure, multiple sites
CPT/HCPCS: 77080

== ENCOUNTER 2024-07-22 14:11 | Outpatient (REF) | payer MEDICARE, SELFPAY | END 2024-07-22 14:12 | disposition home or self-care (01) | LOC: LBN 14:11 | PROVIDERS: PCP Student in an Organized Health Care Education/Training Program; Visit Provider Advanced Practice Midwife | DX: R30.0 Dysuria (principal) | CPT/HCPCS: 87077; 87086; 87186 ==

== ENCOUNTER 2024-08-01 03:22 | Outpatient (CLI) | payer MEDICARE, SELFPAY ==
[2024-08-01 07:37] LABS: HCT 41.6 % (36.0-46.0); HGB 13.8 g/dL (11.2-15.7); MCH 31.7 pg (27.0-33.0); MCHC 33.2 % (32.0-36.0); MCV 96 fL (80-95); Platelet Count 236 10^3/uL (130-400); RBC 4.35 10^6/uL (3.93-5.22); RDW 11.9 % (11.7-14.6); RDW-SD 41.6 fL; WBC 5.24 10^3/uL (4.4-10.8)
[2024-08-01 08:13] LABS: ALT 23 U/L (14-59); AST 15 U/L (15-37); Albumin 3.6 g/dL (3.4-5.0); Alkaline Phosphatase 48 U/L (46-116); Anion Gap 6.9 mmol/L (3-11); BUN 23 mg/dL (7-18); CO2 29.1 mmol/L (21.0-32.0); Chloride 103 mmol/L (98-107); Estimated GFR 62.52 (mL/min/1.73m2); Glucose 105 mg/dL (74-106); Potassium 4.2 mmol/L (3.5-5.1); Sodium 139 mmol/L (136-145); Total Protein 6.9 g/dL (6.4-8.2)
== END 2024-08-01 03:23 | disposition home or self-care (01) ==
LOC: LBO 03:23
PROVIDERS: PCP Student in an Organized Health Care Education/Training Program; Referring Provider Student in an Organized Health Care Education/Training Program; Visit Provider Student in an Organized Health Care Education/Training Program
DX: R71.8 Other abnormality of red blood cells (principal); R53.83 Other fatigue; M81.0 Age-related osteoporosis without current pathological fracture; R73.01 Impaired fasting glucose; Q44.5 Other congenital malformations of bile ducts
CPT/HCPCS: 36415; 80053; 85027

== ENCOUNTER 2024-08-24 03:32 | Outpatient (CLI) | payer MEDICARE, SELFPAY ==
[2024-08-24 09:39] LABS: Folate 17.9 ng/mL (8.6-20.0)
[2024-08-24 09:51] LABS: Vitamin B12 572 pg/mL (193-986); Vitamin D 25 Total 46.8 ng/mL (30-100)
[2024-08-24 10:01] LABS: Hemoglobin A1C 5.7 % (<5.7)
[2024-08-29 17:23] LABS: Apolipoprotein B, Serum 129 mg/dL (48-124); Beta VLDL Cholesterol Not Detected mg/dL (<15); Beta VLDL Triglycerides Not Detected mg/dL (<15); Cholesterol, Total, CDC 261 mg/dL; Chylomicron Cholesterol Not Detected; Chylomicron Triglycerides Not Detected; HDL Cholesterol, CDC 53 mg/dL (>=50); LDL Cholesterol 155 mg/dL; LDL Triglycerides 47 mg/dL (<=50); Lp(a) Cholesterol 26 mg/dL (<5); LpX Not detected; Triglycerides, CDC 120 mg/dL; VLDL Cholesterol 27 mg/dL (<30); VLDL Triglycerides 50 mg/dL (<120)
== END 2024-08-24 03:33 | disposition home or self-care (01) ==
LOC: LBO 03:32
PROVIDERS: PCP Student in an Organized Health Care Education/Training Program; Visit Provider Student in an Organized Health Care Education/Training Program
DX: K90.9 Intestinal malabsorption, unspecified (principal); Z71.89 Other specified counseling; R73.09 Other abnormal glucose
CPT/HCPCS: 36415; 80061; 82306; 82172; 82607; 82664; 82746; 83036

== ENCOUNTER 2025-01-06 00:30 | Outpatient (CLI) | payer MEDICARE, SELFPAY ==
--- NOTE | 2025-01-06 08:15 | DI.MAMMO_ITS ---
Exam(s) MAMMO SCREENING EXAM: MAMMO SCREENING CLINICAL HISTORY: screening,Z12.31. TECHNIQUE: Bilateral full field digital CC and MLO mammographic images were obtained with 3D tomosyn thesis and utilizing computer aided detection (CAD). COMPARISON: Prior mammograms were reviewed. FINDINGS: There has been no significant change in the appearance and distribution of the fibroglandular tissue. There are no new spiculated masses nor malignant appearing microcalcification groups. There is no significant architectural distortion nor skin thickening-retraction. IMPRESSION: No radiographic evidence of malignancy. BI-RADS Category 1 - Negative Breast Density - Category B - Scattered areas of fibroglandular density Breast density Category C or D implies that the patient has dense breast tissue. Dense breast tissue can make it harder to find cancer on a mammogram. Dense breast tissue is also associated with an incr eased risk of breast cancer. This information about the result of the mammogram report was provided to the patient to raise their awareness. Use this report when you speak with the patient about their risks for breast cancer, which includes their family history. At that time, you may recommend additional screening tests (Ultrasoun d or MRI) as these tests may add significant information. A negative radiographic report should not delay biopsy if a dominant or clinically suspicious mass is present. Up to ten percent of cancers are not identified on mammography. A negative report may reinforce clinical impression. Adenosis and dense breasts may obscure an underlying neoplasm. False positive reports average 6 to 10%. Patient will receive a letter notifying them of these results.
== END 2025-01-06 00:50 ==
LOC: DI 00:30
PROVIDERS: PCP Nurse Practitioner Family; Visit Provider Nurse Practitioner Family
DX: M85.80 Other specified disorders of bone density and structure, unspecified site (principal); Z12.31 Encounter for screening mammogram for malignant neoplasm of breast; R92.323 Mammographic fibroglandular density, bilateral breasts
CPT/HCPCS: 77063; 77067

== ENCOUNTER 2025-03-06 02:39 | Outpatient (CLI) | payer MEDICARE, SELFPAY ==
[2025-03-06 09:40] LABS: Calcium 9.5 mg/dL (8.5-10.1); Magnesium 2.1 mg/dL (1.8-2.4); PHOSPHORUS 4.2 mg/dL (2.6-4.7)
[2025-03-06 10:15] LABS: Vitamin D 25 Total 39 ng/mL (30-100)
[2025-03-10 16:37] LABS: Apolipoprotein B, Serum 100 mg/dL (48-124); Beta VLDL Cholesterol Not Detected mg/dL (<15); Beta VLDL Triglycerides Not Detected mg/dL (<15); Cholesterol, Total, CDC 211 mg/dL; Chylomicron Cholesterol Not Detected; Chylomicron Triglycerides Not Detected; HDL Cholesterol, CDC 51 mg/dL (>=50); LDL Cholesterol 101 mg/dL; LDL Triglycerides 71 mg/dL (<=50); Lp(a) Cholesterol 25 mg/dL (<5); LpX Not detected; Triglycerides, CDC 172 mg/dL; VLDL Cholesterol 34 mg/dL (<30); VLDL Triglycerides 76 mg/dL (<120)
== END 2025-03-06 02:40 | disposition home or self-care (01) ==
LOC: LBO 02:39
PROVIDERS: PCP Nurse Practitioner Family; Referring Provider Nurse Practitioner Family; Visit Provider Nurse Practitioner Family
DX: M85.80 Other specified disorders of bone density and structure, unspecified site (principal); E78.5 Hyperlipidemia, unspecified
CPT/HCPCS: 36415; 80061; 82306; 82172; 82310; 82664; 83735; 84100

== ENCOUNTER 2025-08-04 04:17 | Outpatient (CLI) | payer MEDICARE, SELFPAY ==
--- NOTE | 2025-08-04 06:15 | DI.RAD_ITS ---
Exam(s) XR FOOT RT COMPLETE EXAM: XR FOOT RT COMPLETE CLINICAL HISTORY: foot pain since march,m79.671. TECHNIQUE: 2D digital imaging was performed. COMPARISON: No exams were available for comparison FINDINGS: 3 views No evidence of fracture or diastasis of the Lisfranc joint. There are moderate-advanced degenerative changes in the great toe metatarsophalangeal joint and there also some degenerative changes in the metatarsophalangeal joint of the 2nd toe, more prominent on its lateral aspect. Other MTP joints appear unremarkable as do the other articulations. Bone density normal. No osseous lesions. Small inferior calcaneal spur is noted. IMPRESSION: Significant degenerative changes in the great toe metatarsophalangeal joint. Also some degenerative change in the metatarsophalangeal joint of the adjacent 2nd toe. DATA REPOSITORY: RADIATION DOSE DELIVERED:
== END 2025-08-04 04:37 ==
LOC: DI 04:18
PROVIDERS: PCP Nurse Practitioner Family; Visit Provider Nurse Practitioner Family
DX: M19.071 Primary osteoarthritis, right ankle and foot (principal)
CPT/HCPCS: 73630

== ENCOUNTER → 2025-08-09 15:16 | Outpatient (BNVA) | payer MEDICARE, SELFPAY | PROVIDERS: PCP Nurse Practitioner Family; Referring Provider Nurse Practitioner Family; Visit Provider Podiatrist | DX: M79.671 Pain in right foot (principal); M72.2 Plantar fascial fibromatosis; M67.01 Short Achilles tendon (acquired), right ankle; M77.41 Metatarsalgia, right foot | CPT/HCPCS: 20550; 99203; J0702; J1100 ==

== ENCOUNTER → 2025-09-12 13:26 | Outpatient (BNVA) | payer MEDICARE, SELFPAY | PROVIDERS: PCP Nurse Practitioner Family; Referring Provider Nurse Practitioner Family; Visit Provider Podiatrist | DX: M72.2 Plantar fascial fibromatosis (principal); M67.01 Short Achilles tendon (acquired), right ankle; M77.41 Metatarsalgia, right foot | CPT/HCPCS: 99213 ==

== ENCOUNTER 2025-09-15 02:35 | Outpatient (CLI) | payer MEDICARE, SELFPAY ==
[2025-09-20 15:58] LABS: Apolipoprotein B, Serum 89 mg/dL (48-124); Beta VLDL Cholesterol Not Detected mg/dL (<15); Beta VLDL Triglycerides Not Detected mg/dL (<15); Cholesterol, Total, CDC 194 mg/dL; Chylomicron Cholesterol Not Detected; Chylomicron Triglycerides Not Detected; HDL Cholesterol, CDC 47 mg/dL (>=50); LpX Not detected; Triglycerides, CDC 128 mg/dL; VLDL Triglycerides 65 mg/dL (<120)
== END 2025-09-15 02:36 | disposition home or self-care (01) ==
LOC: LBO 02:35
PROVIDERS: PCP Nurse Practitioner Family; Referring Provider Nurse Practitioner Family; Visit Provider Nurse Practitioner Family
DX: E78.49 Other hyperlipidemia (principal)
CPT/HCPCS: 36415; 80061; 82172; 82664